=== PATIENT | female | born 1985 | race Two or more races ===

== ENCOUNTER 2024-06-17 15:21 | Inpatient (IN) | payer OTHER ==
[~2024-06-17] VITALS: Ht 167.6 cm; Wt 2.3 kg
[2024-06-17 15:39] VITALS: BP 150/81
[2024-06-17] MEDS ORDERED: RINGERS SOLUTION,LACTATED 1,000 ML IV SCH (15:45)
[2024-06-17] MEDS ORDERED: FOLIC ACID20 MG PO (15:54)
[2024-06-17] MEDS ORDERED: PRENATABS RX T1 EACH PO (15:54)
[2024-06-17] MEDS ORDERED: LABETALOL 31 MG/1 ML PO (15:54)
[2024-06-17] MEDS ORDERED: NIFEDIPINE20 MG PO (15:54)
[2024-06-17 17:25] LABS: HEMATOCRIT 36.9 % (36.0-45.00); HEMOGLOBIN 12.5 g/dL (12.0-15.00); MEAN CELL VOLUME 86.3 fL (80.00-100.00); MEAN CORPUSCULAR HEMOGLOBIN 29.1 pg (27.00-32.0); MEAN CORPUSCULAR HGB CONC 33.8 g/dl (32.0-36.0); PLATELET COUNT 225 K/uL (150-450); RED BLOOD COUNT 4.28 M/uL (4.00-6.00); RED CELL DISTRIBUTION WIDTH 14.9 % (11.5-14.5)
[2024-06-17] MEDS ORDERED: LABETALOL HCL 300 MG TABLET PO SCH (17:45)
[2024-06-17] MEDS ORDERED: NIFEDIPINE 30 MG TAB.SA.OSM PO SCH (17:45)
[2024-06-17 17:48] LABS: INR < 0.93; PARTIAL THROMBOPLASTIN TIME 26.7 SECONDS (22.0-34.0); PROTHROMBIN TIME 10.2 SECONDS (9.0-11.5)
[2024-06-17 17:52] LABS: PH,URINE 5.5 (5.0-8.0); URINE APPEARANCE Clear; URINE BILIRRUBIN Negative (NEGATIVE); URINE BLOOD Negative; URINE COLOR Yellow; URINE GLUCOSE Negative (NEGATIVE); URINE KETONE Negative (NEGATIVE); URINE LEUKOCYTE Small; URINE NITRATE Negative; URINE PROTEIN 30 (NEGATIVE); URINE UROBILINOGEN 0.2 E.U./dl
[2024-06-17 17:54] LABS: ALBUMIN 2.9 gm/dL (3.4-5.0); BILIRUBIN TOTAL 0.28 mg/dL (0.3-1.2); CALCIUM 9.5 mg/dL (8.5-10.1); CREATININE SERUM 0.62 mg/dL (0.55-1.02); GFR 106.61; GLOBULINA 3.7 G/DL (2.4-3.5); POTASSIUM 4.29 mEq/L (3.5-5.1); TOTAL PROTEIN 6.6 gm/dL (6.4-8.2)
[2024-06-17 17:55] LABS: URINE BACTERIA 903.3 uL (0.0-1933); URINE EPITHELIAL CELLS 33.3 uL (0.0-38.8); URINE RBC 10.5 uL (0.0-20.8); URINE WBC 28.1 uL (0.0-23.2)
[2024-06-17] MEDS ORDERED: BETAMETHASONE ACETATE,SOD PHOS 30 MG/5 ML ML IM SCH (18:00)
[2024-06-17 18:10] VITALS: BP 145/79
[2024-06-17 20:01] VITALS: BP 153/89
[2024-06-17] MEDS ORDERED: GUAIFENESIN 600 MG TABLET.SA PO SCH (21:00)
[2024-06-17 22:10] VITALS: BP 143/68
[2024-06-17 23:44] VITALS: BP 154/76
[2024-06-18] VITALS (12 sets, daily range): BP systolic 123–160; BP diastolic 54–79
[2024-06-18] MEDS ORDERED: ACETAMINOPHEN 500 MG GEL..CAP PO PRN (02:30)
[2024-06-18] MEDS ORDERED: BETAMETHASONE ACETATE,SOD PHOS 30 MG/5 ML ML IM SCH (18:00)
[2024-06-18] MEDS ORDERED: LABETALOL HCL 300 MG TABLET PO SCH (21:00)
[2024-06-18] MEDS ORDERED: NIFEDIPINE 30 MG TAB.SA.OSM PO SCH (21:00)
[2024-06-19] VITALS (9 sets, daily range): BP systolic 126–156; BP diastolic 60–72
[2024-06-19] MEDS ORDERED: LABETALOL HCL 300 MG TABLET PO SCH (09:00)
[2024-06-20] VITALS (8 sets, daily range): BP systolic 130–188; BP diastolic 69–83
[2024-06-20] MEDS ORDERED: MAGNESIUM SULFATE IN WATER 4 GM/100 ML PIGGYBACK IV ONE (05:00)
[2024-06-20] MEDS ORDERED: MAGNESIUM SULFATE IN WATER 500 ML IV SCH ×2 (05:00→10:30)
[2024-06-20] MEDS ORDERED: LABETALOL HCL 100 MG/20 ML ML IV NR (07:15)
[2024-06-20] MEDS ORDERED: CITRIC ACID/SODIUM CITRATE 30 ML BLIST.PACK PO SCH (08:15)
[2024-06-20] MEDS ORDERED: CEFAZOLIN SODIUM 1,000 MG VIAL IV SCH (08:15)
[2024-06-20] MEDS ORDERED: hydrALAZINE HCL 20 MG VIAL IV SCH (09:45)
[2024-06-20] MEDS ORDERED: OXYTOCIN 1,000 ML IV ONE (10:30)
[2024-06-20] MEDS ORDERED: RINGERS SOLUTION,LACTATED 1,000 ML IV SCH (10:30)
[2024-06-20] MEDS ORDERED: ONDANSETRON HCL 2 MG/ML VIAL IV SCH (12:00)
[2024-06-20] MEDS ORDERED: ACETAMINOPHEN 500 MG GEL..CAP PO SCH (12:00)
[2024-06-20] MEDS ORDERED: MORPHINE SULFATE 4 MG/ML VIAL IV ONE (12:50)
[2024-06-20] MEDS ORDERED: GABAPENTIN 300 MG CAPSULE PO SCH (17:00)
[2024-06-20] MEDS ORDERED: SIMETHICONE 125 MG CAPSULE PO SCH (17:00)
[2024-06-21 01:08] VITALS: BP 103/67
[2024-06-21 07:25] LABS: ALBUMIN 2.1 gm/dL (3.4-5.0); BILIRUBIN TOTAL 0.29 mg/dL (0.3-1.2); CALCIUM 7.4 mg/dL (8.5-10.1); CREATININE SERUM 0.56 mg/dL (0.55-1.02); GFR 119.9; GLOBULINA 2.8 G/DL (2.4-3.5); POTASSIUM 4.59 mEq/L (3.5-5.1); TOTAL PROTEIN 4.9 gm/dL (6.4-8.2)
[2024-06-21 08:00] VITALS: BP 134/75
[2024-06-21] MEDS ORDERED: OxyCODONE HCL 5 MG TABLET (ROXICODONE) PO PRN (08:00)
[2024-06-21] MEDS ORDERED: FF) RHO(D) IMMUNE GLOBULIN (POM) IM NR (08:15)
[2024-06-21 08:50] LABS: HEMATOCRIT 27.5 % (36.0-45.00); MEAN CELL VOLUME 86.7 fL (80.00-100.00); MEAN CORPUSCULAR HGB CONC 33.4 g/dl (32.0-36.0); PLATELET COUNT 202 K/uL (150-450); RED BLOOD COUNT 3.17 M/uL (4.00-6.00); RED CELL DISTRIBUTION WIDTH 14.5 % (11.5-14.5)
[2024-06-21 08:51] LABS: HEMOGLOBIN 9.2 g/dL (12.0-15.00)
[2024-06-21] MEDS ORDERED: DOCUSATE SODIUM 100MG CAP PO SCH (09:00)
[2024-06-21 19:19] VITALS: BP 135/85
[2024-06-22 01:20] VITALS: BP 160/80
[2024-06-22 01:47] VITALS: BP 130/70
[2024-06-22 05:59] VITALS: BP 150/60
[2024-06-22 08:00] VITALS: BP 141/80
[2024-06-22] MEDS ORDERED: NIFEDIPINE 30 MG TAB.SA.OSM PO SCH (09:00)
[2024-06-22 16:00] VITALS: BP 139/77
[2024-06-23 02:48] VITALS: BP 170/80
[2024-06-23 05:25] VITALS: BP 140/80
[2024-06-23] MEDS ORDERED: CYCLOBENZAPRINE HCL 5 MG TABLET PO SCH (09:00)
[2024-06-23 09:13] VITALS: BP 130/82; BP 151/87
[2024-06-23] MEDS ORDERED: FUROsemide 20 MG TABLET PO NR (11:30)
== END 2024-06-23 15:34 | disposition home or self-care (01) | DRG 788 ==
LOC: EDBD 15:21 → LDR 15:21 → O/R 06-20 09:48 → OB/GYN 06-20 13:02
PROVIDERS: Obstetrics & Gynecology; ADMIT Obstetrics & Gynecology Gynecology; ATTEND Obstetrics & Gynecology Gynecology
PROC: 4A1HXCZ Monitoring of Products of Conception, Cardiac Rate, External Approach (ICD-10-PCS; 2024-06-17)
PROC: BY4FZZZ Ultrasonography of Third Trimester, Single Fetus (ICD-10-PCS; 2024-06-18)
PROC: 10D00Z1 Extraction of Products of Conception, Low, Open Approach (ICD-10-PCS; principal; 2024-06-20 11:00)
DX: O14.14 Severe pre-eclampsia complicating childbirth (principal); O60.14X0 Preterm labor third trimester with preterm delivery third trimester, not applicable or unspecified; Z3A.36 36 weeks gestation of pregnancy; Z37.0 Single live birth; Z20.822 Contact with and (suspected) exposure to COVID-19